=== PATIENT | female | born 1930 | race Caucasian/White ===

== ENCOUNTER 2017-01-26 14:04 | Emergency (ER) | payer MEDICARE, BC ==
[~2017-01-26] VITALS: Ht 157.5 cm; Wt 64.3 kg
[2017-01-26 14:06] VITALS: BP 200/84; PULSE 69; RESP 16; TEMP 98; O2SAT 99
[2017-01-26] MEDS ORDERED: B/P MED (15:04)
[2017-01-26] MEDS ORDERED: MED FOR TACHYCARDIA (15:04)
--- NOTE | 2017-01-26 15:34 | PD ---
HPI Chief Complaint: Fall Time Seen by Provider: 15:23 Travel History International Travel<30 days: No Contact w/Intl Traveler<30days: No Traveled to known affect area: No History of Present Illness HPI 87-year-old female patient presents to the ER today, apparently had checked while going to the restroom and fell backwards hitting the back part of her head , had no loss of consciousness, but is currently complaining of right hip pains especially with walking. She denies any chest pains, shortness of breath, loss consciousness, headaches, vomiting, or any other injuries. Modifying Factors: None Associated Signs & Symptoms: Fall, head injury, right hip injury Risk Factors: Elderly PFSH Past Medical History Heart Rhythm Problems: Yes (TACHYCARDIA) Hypertension: Yes ?: Not Past Surgical History Appendectomy: Yes Cholecystectomy: Yes Hysterectomy: Yes Social History Alcohol Use: No Tobacco Use: No Substance Use: No Allergies-Medications (Allergen,Severity, Reaction): Coded Allergies: No Known Allergies (Verified Allergy, Unknown, 01/26/17) Reported Meds & Prescriptions Reported Meds & Active Scripts Active Reported [Med For Tachycardia] [B/P Med] Review of Systems Except as stated in HPI: all other systems reviewed are Neg Physical Exam Narrative GENERAL: Well-developed elderly white female patient currently in mild distress. Awake and oriented 3. SKIN: Focused skin assessment warm/dry. HEAD: There is a notable shallow laceration and hematoma over the left posterior scalp measuring 4 cm. Normocephalic. EYES: Pupils equal and round. No scleral icterus. No injection or drainage. ENT: No nasal bleeding or discharge. Mucous membranes pink and moist. NECK: Trachea midline. No JVD. CARDIOVASCULAR: Regular rate and rhythm. No murmur appreciated. RESPIRATORY: No accessory muscle use. Clear to auscultation. Breath sounds equal bilaterally. GASTROINTESTINAL: Abdomen soft, non-tender, nondistended. Hepatic and splenic margins not palpable. Pelvis: Stable, tender to palpation in the right hip laterally. MUSCULOSKELETAL: No obvious deformities. No clubbing. No cyanosis. No edema. NEUROLOGICAL: Awake and alert. No obvious cranial nerve deficits. Motor grossly within normal limits. Normal speech. PSYCHIATRIC: Appropriate mood and affect; insight and judgment normal. Data Data Last Documented VS Vital Signs Date Time Temp Pulse Resp B/P (MAP) Pulse Ox O2 Delivery O2 Flow Rate FiO2 01/26/17 14:06 98.0 69 16 200/84 (122) [address] Brain W/O Iv Contrast(Rout) (01/26/17 15:23) Hip, Uni(Ap&Lat) W Ap Pelvis (01/26/17 15:23) Ed Discharge Order (01/26/17 16:35) MDM Medical Decision Making Medical Screen Exam Complete: Yes Emergency Medical Condition: Yes Medical Record Reviewed: Yes Interpretation(s) Last 24 hours Impressions Hip and Pelvis X-Ray 01/26/17 1523 Signed Impressions: Service Date/Time: Thursday, January 26, 2017 15:51 - CONCLUSION: No acute disease. Geovanni Fuentes MD Head CT 01/26/17 1523 Signed Impressions: Service Date/Time: Thursday, January 26, 2017 16:10 - CONCLUSION: 1. No acute intracranial abnormality is seen. 2. Mild age-related atrophy and suspected small vessel ischemic changes in white matter. Geovanni Fuentes MD Differential Diagnosis Fall, right hip injury, head injury: Rule out intercranial injuries versus fractures versus dislocations versus contusions Narrative Course CAT scan and x-ray of the head did not reveal any signs of acute injuries. Patient has been able to ablate after the injury. I suspect that she has a hip contusion. At this point, my plan would be to release her with follow-up to primary care doctor. Return for any worsening in pain or new symptoms as needed. The plan has discussed with her and she states understanding. Diagnosis Primary Impression: Contusion of right hip Additional Impression: Scalp contusion Disposition: 01 DISCHARGE HOME Condition: Stable Von Armendariz MD Jan 26, 2017 15:34
--- NOTE | 2017-01-26 16:22 | RADRPT ---
EXAM DATE/TIME: 01/26/2017 16:10 [facility] COMPARISON: No previous studies available for comparison. INDICATIONS : Fall. Hit back of head. RADIATION DOSE: 55.33 CTDIvol (mGy) MEDICAL HISTORY : None SURGICAL HISTORY : Appendectomy. Cholecystectomy.Hysterectomy.Bilateral knee replacement. ENCOUNTER: Initial ACUITY: 1 day PAIN SCALE: 6/10 LOCATION: occipital TECHNIQUE: Multiple contiguous axial images were obtained of the head. Using automated exposure control and adj ustment of the mA and/or kV according to patient size, radiation dose was kept as low as reasonably a chievable to obtain optimal diagnostic quality images. DICOM format image data is available electro nically for review and comparison. FINDINGS: CEREBRUM: The ventricles and cortical sulci are mildly widened. No evidence of midline shift, mass lesion, hem orrhage or acute infarction. No extra-axial fluid collections are seen. There is low-density seen in the periventricular white matter. POSTERIOR FOSSA: The cerebellum and brainstem are intact. The 4th ventricle is midline. The cerebellopontine angle i s unremarkable. EXTRACRANIAL: The visualized portion of the orbits is intact. The there is chronic appearing maxillary sinuses thes e. SKULL: The calvaria is intact. No evidence of skull fracture. CONCLUSION: 1. No acute intracranial abnormality is seen. 2. Mild age-related atrophy and suspected small vessel ischemic changes in white matter. Geovanni Fuentes MD on January 26, 2017 at 16:18 Board Certified Radiologist. This report was verified electronically.
--- NOTE | 2017-01-26 16:24 | RADRPT ---
EXAM DATE/TIME: 01/26/2017 15:51 [facility] COMPARISON: No previous studies available for comparison. INDICATIONS : Fell, has right hip area pain MEDICAL HISTORY : Hypertension. SURGICAL HISTORY : None. ENCOUNTER: Initial ACUITY: 1 day PAIN SCORE: 4/10 LOCATION: Right hip FINDINGS: Examination of the right hip was performed with AP Pelvis. The primary and secondary trabecular andrews yazmin of the femoral neck is intact. The hip joint is of normal width without significant sclerosis. There is a mild hypertrophic change around the greater trochanter. The bones appear osteopenic. The a cetabulum is grossly intact. There is degenerative change in the lower lumbar spine. There is a focal area of sclerosis in the right ilium and at the left intertrochanteric region the femoral neck. Thes e are nonspecific. They could represent bone islands. Other causes for sclerotic lesions cannot be ex cluded. CONCLUSION: No acute disease. Geovanni Fuentes MD on January 26, 2017 at 16:21 Board Certified Radiologist. This report was verified electronically.
== END 2017-01-26 16:56 | disposition home or self-care (01) ==
LOC: PHED 14:04 → PHEFT 16:56
DX: S70.01XA Contusion of right hip, initial encounter (principal); S00.03XA Contusion of scalp, initial encounter; I10 Essential (primary) hypertension; W19.XXXA Unspecified fall, initial encounter
CPT/HCPCS: 70450; 73502